=== PATIENT | female | born 1970 | race Caucasian/White ===

== ENCOUNTER 2016-12-02 13:19 | Emergency (ER) | payer OTHER, MEDICAID ==
[~2016-12-02] VITALS: Ht 165.1 cm; Wt 89.8 kg
[2016-12-02 13:45] VITALS: BP_SYST 118
[2016-12-02] MEDS ORDERED: BACITRACIN 1 GM OINT TP ONE (15:00)
[2016-12-02] MEDS ORDERED: IBUPROFEN 600 MG TABLET PO ONE (15:00)
[2016-12-02 15:13] VITALS: BP_SYST 110
== END 2016-12-02 15:13 | disposition home or self-care (01) ==
LOC: SED 13:19
DX: S91.102A Unspecified open wound of left great toe without damage to nail, initial encounter (principal); I10 Essential (primary) hypertension; W25.XXXA Contact with sharp glass, initial encounter; Y93.89 Activity, other specified; Y92.89 Other specified places as the place of occurrence of the external cause; Y99.8 Other external cause status
CPT/HCPCS: 99283

== ENCOUNTER 2017-08-02 17:40 | Emergency (ER) | payer OTHER, MEDICAID ==
[~2017-08-02] VITALS: Ht 165.1 cm; Wt 84.8 kg
[2017-08-02 17:48] VITALS: BP_SYST 135
--- NOTE | 2017-08-02 17:58 | NUR ---
Patient to ER bed 8 to gown for evaluation. Side rails up. Report given to Frank DARNELL.
[2017-08-02] MEDS ORDERED: PROPARACAINE (OPTHANINE 0.5%) 15 ML DROPS OP ONE (18:00)
[2017-08-02] MEDS ORDERED: IBUPROFEN 800 MG TABLET PO ONE (18:00)
--- NOTE | 2017-08-02 18:00 | NUR ---
Patient to ER via triage with c/o right eye pain/irritation along with impaired vision to right eye. Patient reports that she put an old contact in, that had been in old contact lens solution. Patient felt burning and discomfort to eye and attempted to remove contact without success. Patient was ultimately able to remove the contact lens. Patient with discomfort to right eye after attempting removal of right eye lens. Patient denies any other complaints at present. Patient able to ambulate to room 8 with slow, steady gait. Awaiting evaluation by ER MD, will continue to observe and assess.
--- NOTE | 2017-08-02 18:10 | NUR ---
Patient to sink for eye irrigation. Patient continues to wait for evaluation by ER MD.
--- NOTE | 2017-08-02 18:25 | NUR ---
Patient left without receiving any of her medication.
--- NOTE | 2017-08-02 18:25 | NUR ---
Patient left without being seen by ER MD. Patient states that it is too busy, and that she will go to another hospital, advised to wait and that ER MD would be with her as soon as possible. Patient had been receiving treatment for eye pain, irrigated at sink with copious amounts of water. But was still waiting for evaluation by ER MD. Patient declined to wait any longer. Patient left ER ambulating with slow, steady gait in no acute distress. woods rider Roger, and Dr Ryan notified that patient left without being seen.
== END 2017-08-02 18:31 | disposition left against medical advice (07) ==
LOC: SED 17:40
DX: Z53.21 Procedure and treatment not carried out due to patient leaving prior to being seen by health care provider (principal)

== ENCOUNTER 2018-02-07 19:04 | Emergency (ER) | payer OTHER, MEDICAID ==
[~2018-02-07] VITALS: Ht 165.1 cm; Wt 108.9 kg
[2018-02-07 19:04] VITALS: BP_SYST 124
[2018-02-07 19:40] VITALS: BP_SYST 124
== END 2018-02-07 19:40 | disposition left against medical advice (07) ==
LOC: SED 19:04
DX: F41.9 Anxiety disorder, unspecified (principal); I10 Essential (primary) hypertension; Z04.6 Encounter for general psychiatric examination, requested by authority; Z53.21 Procedure and treatment not carried out due to patient leaving prior to being seen by health care provider

== ENCOUNTER 2018-07-10 06:13 | Emergency (ER) | payer OTHER, MEDICAID ==
[~2018-07-10] VITALS: Ht 165.1 cm; Wt 104.3 kg
[2018-07-10 06:17] VITALS: BP_SYST 145
[2018-07-10] MEDS ORDERED: methylPREDNISolone SOD SUCC/PF 62.5 MG/ML VIAL IVP ONE (06:30)
[2018-07-10] MEDS ORDERED: IPRATROPIUM/ALBUTEROL SULFATE 3 ML AMPUL.NEB (DUONEB) INH ONE ×2 (06:30→07:15)
[2018-07-10 06:51] LABS: BASOPHILS # (AUTO) 0.1 K/uL (0.0-0.2); BASOPHILS % (AUTO) 0.8 % (0.0-2.0); EOSINOPHILS # (AUTO) 0.4 K/uL (0.0-0.4); EOSINOPHILS % (AUTO) 4.7 % (0.0-4.0); HEMOGLOBIN 11.9 g/dL (12.0-16.0); LYMPHOCYTES # (AUTO) 2.2 K/uL (1.0-5.5); LYMPHOCYTES % (AUTO) 26.1 % (20.5-51.5); MEAN CORPUSCULAR HEMOGLOBIN 27 pg (27-31); MEAN CORPUSCULAR HGB CONC 32 % (32-36); MEAN CORPUSCULAR VOLUME 83 fL (79.0-98.0); MONOCYTES # (AUTO) 0.6 K/uL (0.0-1.0); MONOCYTES % (AUTO) 7.4 % (1.7-9.3); NEUTROPHILS # (AUTO) 5.2 K/uL (1.8-7.7); PLATELET COUNT (AUTO) 294 K/uL (130-430); RED BLOOD CELL COUNT(AUTO) 4.48 MIL/uL (4.2-6.2); RED CELL DISTRIBUTION WIDTH 14.9 % (9.0-15.0); WHITE BLOOD COUNT (AUTO) 8.5 K/uL (4.8-10.8)
[2018-07-10] MEDS ORDERED: NICOTINE 21 MG/24 HR PATCH.TD24 TD ONE (07:15)
[2018-07-10] MEDS ORDERED: cefTRIAXone 1 GM IVPB PREMIX 50 ML IV ONE (07:15)
[2018-07-10 07:30] LABS: CALCIUM 9.1 mg/dL (8.4-11.0); CREATININE 0.73 mg/dL (0.55-1.30)
[2018-07-10 07:37] LABS: ALBUMIN 3.4 g/dL (3.4-4.8); TOTAL BILIRUBIN 0.5 mg/dL (0.0-1.0)
[2018-07-10 07:59] VITALS: BP_SYST 137
== END 2018-07-10 07:59 | disposition home or self-care (01) ==
LOC: SED 06:13
DX: J45.901 Unspecified asthma with (acute) exacerbation (principal); J18.8 Other pneumonia, unspecified organism; I10 Essential (primary) hypertension; F41.9 Anxiety disorder, unspecified
CPT/HCPCS: 36415; 71045; 80053; 85025; 94640; 96365; 96375; 99284; J0696; J2930; J7620

== ENCOUNTER 2021-12-26 19:07 | Emergency (ER) | payer OTHER, MEDICAID ==
[~2021-12-26] VITALS: Ht 162.6 cm; Wt 99.8 kg
[2021-12-26 19:45] LABS: BASOPHILS # (AUTO) 0.1 K/uL (0.0-0.2); BASOPHILS % (AUTO) 0.5 % (0.0-2.0); EOSINOPHILS # (AUTO) 0.4 K/uL (0.0-0.4); EOSINOPHILS % (AUTO) 2.5 % (0.0-4.0); HEMATOCRIT 45.1 % (36-48); HEMOGLOBIN 14.9 g/dL (12.0-16.0); LYMPHOCYTES # (AUTO) 4.4 K/uL (1.0-5.5); LYMPHOCYTES % (AUTO) 30.3 % (20.5-51.5); MEAN CORPUSCULAR HEMOGLOBIN 27 pg (27-31); MEAN CORPUSCULAR HGB CONC 33 % (32-36); MEAN CORPUSCULAR VOLUME 81 fL (79.0-98.0); MONOCYTES # (AUTO) 1.6 K/uL (0.0-1.0); MONOCYTES % (AUTO) 10.8 % (1.7-9.3); NEUTROPHILS # (AUTO) 8.2 K/uL (1.8-7.7); NEUTROPHILS % (AUTO) 55.9 % (40.0-70.0); PLATELET COUNT (AUTO) 341 K/uL (130-430); RED CELL DISTRIBUTION WIDTH 14.9 % (9.0-15.0); WHITE BLOOD COUNT (AUTO) 14.6 K/uL (4.8-10.8)
[2021-12-26 19:50] LABS: ANION GAP 12 (5-15); CALCIUM 9.2 mg/dL (8.4-11.0); CHLORIDE 100 mmol/L (98-107); CREATININE 1.15 mg/dL (0.55-1.30); GLUCOSE 133 mg/dL (70-99); POTASSIUM 3.3 mmol/L (3.5-5.1); SODIUM SERUM 136 mmol/L (136-145); UREA NITROGEN, BLOOD 22 mg/dL (8-21)
[2021-12-26 19:51] LABS: GFR AFRICAN AMERICAN 63 mL/min (>90)
[2021-12-26 19:56] LABS: ACETAMINOPHEN < 1 ug/mL (1-30); ALANINE AMINOTRANSFERASE 40 U/L (12-78); ALBUMIN 4.2 g/dL (3.4-4.8); ALCOHOL, BLOOD < 3 mg/dL (<10); ASPARTATE AMINOTRANSFERASE 41 U/L (10-37); TOTAL BILIRUBIN 1.2 mg/dL (0.0-1.0)
[2021-12-26 20:01] VITALS: BP_SYST 167
[2021-12-26] MEDS ORDERED: OLANZapine IntraMuscular 10 MG VIAL (FOR I.M. INJECTION ONLY) IM ONE (22:00)
--- NOTE | 2021-12-26 22:05 | NUR ---
placed in er hallway for medical clearance
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
--- NOTE | 2021-12-26 22:13 | NUR ---
ER at bedside examining patient.
--- NOTE | 2021-12-26 22:16 | NUR ---
Pt medically cleared for transfer to LPS facility by Dr. Aguilar. Pt's packet faxed to the following LPS facilties for placement evaluation: [facility]- [facility] Awaiting reply.
--- NOTE | 2021-12-26 22:37 | NUR ---
PATIENT EATING SANDWICH WITHOUT ISSUE. DRINKING JUICE WITHOUT ISSUE, NO FURTHER ORDERS/NEEDS AT THIS TIME.
[2021-12-26] MEDS ORDERED: LORazepam 2 MG/ML VIAL IM ONE (23:15)
[2021-12-26] MEDS ORDERED: HALOPERIDOL LACTATE 5 MG/ML VIAL IM ONE (23:15)
--- NOTE | 2021-12-26 23:20 | NUR ---
ABLE TO GET LEADS ON PATIENT, PATIENT STARTING TO STATE SHE IS SLEEPY. PATIENT REFUSING TO GET INTO GOWN AT THIS TIME. BREATHING CLEAR BILATERALLY, UNLABORED AND EQUAL. MEDICATION AND ALLEY CLEANER TAKEN AND GIVEN TO SECURITY.
--- NOTE | 2021-12-27 07:10 | NUR ---
pt resting in bed, vss, respirations even non labored, appears to be in no acute distress noted at this time.
--- NOTE | 2021-12-27 10:00 | NUR ---
PT RESTING IN BED WITH EVEN RESPIRATION, APPEARS TO BE IN NO ACUTE DISTRESS NOTED AT THIS TIME
--- NOTE | 2021-12-27 12:30 | NUR ---
PT AMBULATED AND ASKED FOR WATER AT THIS TIME.
--- NOTE | 2021-12-27 13:17 | NUR ---
MARGUERITE FROM [facility] SBAR
--- NOTE | 2021-12-27 14:07 | NUR ---
SBAR GIVEN TO OSMANY(RN) ANTELMO LUCAS ,STATED PT IS GOING TO ER FIRST AND THEN SHE WILL GIVE A BED.
--- NOTE | 2021-12-27 17:59 | NUR ---
PT SITTING UP EATING DINNER, OCCASSIONALLY USING BED 3 CELLPHONE
[2021-12-27 22:07] VITALS: BP_SYST 136
--- NOTE | 2021-12-27 22:11 | NUR ---
Patient to be transferred to [facility]. Is being transferred due to higher level of care. Receiving facility has accepting physician and available space. ER physician has signed transfer form. Patient or responsible republican has agreed to transfer and signed form. Patient belongings inventoried and will be sent with patient. Copy of nursing notes, lab reports, EKG, Physicians Orders and X-rays to be sent with patient. Report called to at receiving facility. Receiving physician is . ambulance service has been called for transfer. ETA is .
== END 2021-12-27 22:07 ==
LOC: SED 19:07
DX: F23 Brief psychotic disorder (principal); I10 Essential (primary) hypertension; Z79.899 Other long term (current) drug therapy; Z20.822 Contact with and (suspected) exposure to COVID-19
CPT/HCPCS: 36415; 80053; 85025; 87081; 87426; 96372; 99285; G0480; G0481; G0482; J1630; J2060; J3490